=== PATIENT | male | born 1950 | race Caucasian/White ===

== ENCOUNTER 2021-01-15 08:20 | Day surgery (SDC) | payer OTHER ==
[~2021-01-15] VITALS: Ht 182.9 cm; Wt 64.0 kg
[~2021-01-15 08:20] MED LIST: ATOR20 PO; CARV6.25 PO; EUTHYROX50 MCG PO; FURO40 PO; GABA300 PO; Prinivil10 MG PO; SPIR25 PO; XARELTO2.5 M1 PO
[2021-01-15] MEDS ORDERED: ENTRESTO 24 MG1 EACH (08:42)
--- NOTE | 2021-01-15 13:23 | NUR ---
PT DRESSED, IV DC'D INTACT, TR BAND REMOVED, DRESSING AND SPLINT PLACED TO R WRIST, PT AMBULATES WELL, ALERT & ORIENTED, ANXIOUS TO GET HOME TO [facility] BEFORE STORM COMES IN.
--- NOTE | 2021-01-15 14:06 | NUR ---
PT DC'D TO FRONT DOOR BY , STATES HE IS MEETING LOCAL FRIEND, R WRIST SITE STABLE, PT AMBULATES WELL.
== END 2021-01-15 13:30 | disposition home or self-care (01) ==
LOC: MHTC 08:20
DX: I11.0 Hypertensive heart disease with heart failure (principal); I50.22 Chronic systolic (congestive) heart failure; I42.0 Dilated cardiomyopathy; I25.10 Atherosclerotic heart disease of native coronary artery without angina pectoris; I73.9 Peripheral vascular disease, unspecified; G47.33 Obstructive sleep apnea (adult) (pediatric); J44.9 Chronic obstructive pulmonary disease, unspecified; F17.210 Nicotine dependence, cigarettes, uncomplicated; E78.5 Hyperlipidemia, unspecified; E03.9 Hypothyroidism, unspecified; Z86.73 Personal history of transient ischemic attack (TIA), and cerebral infarction without residual deficits; Z95.820 Peripheral vascular angioplasty status with implants and grafts
CPT/HCPCS: 93005; 93010; 93458; 99152; 99153; C1769; C1894; J1644; J2250; J3010; J7030; J7050; Q9967

== ENCOUNTER 2021-06-10 10:41 | Inpatient (IN) | payer OTHER ==
[~2021-06-10] VITALS: Ht 182.9 cm; Wt 63.4 kg
[~2021-06-10 10:41] MED LIST changes: +ENTRESTO 24 MG1 EACH
[2021-06-10 11:19] LABS: BASOPHILS ABSOLUTE AUTO 0.07 K/mm3 (0.00-0.23); BASOPHILS PERCENT AUTO 1 % (0-2); EOSINOPHILS ABSOLUTE AUTO 0.73 K/mm3 (0.00-0.68); EOSINOPHILS PERCENT AUTO 10 % (0-6); Hematocrit 47.5 % (37.0-53.0); Hemoglobin 15.9 g/dL (13.5-17.5); IMMATURE GRAN ABSOLUTE AUTO 0.02 K/mm3 (0.00-0.10); IMMATURE GRAN PERCENT AUTO 0 % (0-1); LYMPHOCYTES ABSOLUTE AUTO 1.73 K/mm3 (0.84-5.20); LYMPHOCYTES PERCENT AUTO 25 % (21-46); MONOCYTES ABSOLUTE AUTO 0.65 K/mm3 (0.16-1.47); MONOCYTES PERCENT AUTO 9 % (4-13); Mean Corpuscular HGB 32.2 pg (26.0-34.0); Mean Corpuscular HGB Conc 33.5 g/dL (31.5-36.5); Mean Corpuscular Volume 96 fL (80-100); Mean Platelet Volume 8.8 fL (9.1-12.4); NEUTROPHILS ABSOLUTE AUTO 3.85 K/mm3 (1.96-9.15); NEUTROPHILS PERCENT AUTO 55 % (41-73); Platelet Count 215 K/mm3 (150-400); RDW Coefficient Variation 11.9 % (11.7-14.2); RDW Standard Deviation 42.5 fL (35.1-46.3); Red Blood Cell Count 4.94 M/mm3 (4.30-5.90); White Blood Cell Count 7.05 K/mm3 (4.00-11.30)
[2021-06-10 11:36] LABS: Bun/Creatinine Ratio 11.4 (12.0-20.0); Calcium, Blood 8.8 mg/dL (8.5-10.1); Creatinine, Blood 1.4 mg/dL (0.60-1.20)
[2021-06-10 11:38] LABS: International Normalized Ratio 1.04; Prothrombin Time Results 10.9 Sec (9.7-11.5)
--- NOTE | 2021-06-10 17:15 | NUR ---
SHIFT NOTE PT [facility] POST DUAL CHAMBER PACEMAKER/DEFIBRILLATOR PLACEMENT TO LEFT CHEST WALL. DRESSING INTACT, CLEAN AND DRY. DR BREWER WAS CALLED TO REASSESS SITE, DR BREWER DID NOT NOTE ABRNORMALITY TO SITE. PT REPORTS MILD PAIN TO PALPATION, FREE OF SUBCUTANEOUS AIR, BRUISING OR SWELLING. PT DENIES CP OR SOB. PT HAS BEEN TO XRAY. PACEMAKER INTERROGATED BY [facility] STAFF. VSS. LT ARM IN SLING. A/O X4. GOOD APPETITE. WILL CONTINUE TO MONITOR FOR CHANGES
--- NOTE | 2021-06-11 05:33 | NUR ---
SHIFT SUMMARY PATIENT A&O X4. CALM AND COOPERATIVE WITH CARE. POST PACEMAKER/DEFIBRILLATOR PLACEMENT. DRESSING IS C/D/I. PATIENT HAD SCANT AMOUNT OF SUBCUTANEOUS EMPHYSEMA FELT DURING BEGINNING OF SHIFT. EMPHYSEMA SPREAD DURING SHIFT TO MID STERNUM AND INCREASED IN SEVERITY WITH PATIENT REPORTING TENDERNESS WITH PALPATION. DR BREWER CALLED ABOUT CHANGE; DANIELLA CAME TO SEE PATIENT AROUND 0540. CXR 1V ORDERED TO VERIFY LEADS OF PACEMAKER. NO COMPLAINTS OF SOB. PACED RHYTHM WITH HR 60-80S. VSS. MEDICATED PER EMAR FOR SHOULDER PAIN. LEFT ARM IS IN SLING WITH PATIENT VERBALIZING UNDERSTANDING TO NOT USE ARM TO REPOSITION. WILL CONTINUE TO MONITOR FOR FURTHER CHANGES TO PACER SITE. PATIENT DEVELOPED N/V AFTER LAST DOSE OF ANCEF. PRN ZOFRAN ORDERED. PATIENT REFUSED IV MEDICATION AND STATED THAT NAUSEA/VOMITING HAS SUBSIDED. PATIENT CALLS APPROPRIATELY AND IS SBA TO COMMODE. CONTINENT B/B. PT ABLE TO REPOSITION SELF IN BED. BED IN LOWEST POSITION AND CALL LIGHT IN REACH.
--- NOTE | 2021-06-11 06:54 | NUR ---
THIS RN HAS REVIEWED THE STUDENT RN'S CHARTING AND ASSESMENTS AND AGREE WITH ALL THAT IS CHARTED.
--- NOTE | 2021-06-11 11:30 | NUR ---
IV REMOVED INTACT, PRESUSRE DRESSED. PT EDUCATED THOROUGHLY ON DC INSUTRCTIONS WOUND CARE, FOLLOW UP, MEDICATION ADMIN, AND ARM MOBILITY. PT REPORTS UNDERSTANDING AND DENIES FURTHER NEEDS
== END 2021-06-11 11:20 | disposition home or self-care (01) | DRG 227 ==
LOC: MHTC 10:41 → PCU 15:15 → MHTC 16:41 → PCU 06-11 11:20
PROVIDERS: ADMIT Internal Medicine Cardiovascular Disease
PROC: 0JH609Z Insertion of Cardiac Resynchronization Defibrillator Pulse Generator into Chest Subcutaneous Tissue and Fascia, Open Approach (ICD-10-PCS; principal; 2021-06-10)
PROC: 02HL3KZ Insertion of Defibrillator Lead into Left Ventricle, Percutaneous Approach (ICD-10-PCS; 2021-06-10)
PROC: 02H63KZ Insertion of Defibrillator Lead into Right Atrium, Percutaneous Approach (ICD-10-PCS; 2021-06-10)
DX: I44.7 Left bundle-branch block, unspecified (principal); I42.0 Dilated cardiomyopathy; I50.42 Chronic combined systolic (congestive) and diastolic (congestive) heart failure; G47.33 Obstructive sleep apnea (adult) (pediatric); I11.0 Hypertensive heart disease with heart failure; J44.9 Chronic obstructive pulmonary disease, unspecified; E78.5 Hyperlipidemia, unspecified; E03.9 Hypothyroidism, unspecified; Z91.048 Other nonmedicinal substance allergy status; Z86.73 Personal history of transient ischemic attack (TIA), and cerebral infarction without residual deficits; Z79.899 Other long term (current) drug therapy; Z79.01 Long term (current) use of anticoagulants
CPT/HCPCS: 33225; 33249; 36415; 71045; 71046; 80048; 85025; 85610; 93005; 93010; 99152; 99153; A9270; C1769; C1882; C1887; C1895; C1898; C1900; J0690; J1580; J1644; J2250; J3010; J7030; J7040; Q9967

== ENCOUNTER 2021-09-14 09:40 | Observation (INO) | payer OTHER ==
[~2021-09-14] VITALS: Ht 182.9 cm; Wt 62.6 kg
[2021-09-14 10:53] LABS: Bun/Creatinine Ratio 12.5 (12.0-20.0); Calcium, Blood 8.9 mg/dL (8.5-10.1); Creatinine, Blood 1.44 mg/dL (0.60-1.20); Potassium, Blood 3.9 mmol/L (3.5-5.5)
--- NOTE | 2021-09-14 11:09 | NUR ---
IVF STARTED WHEN THE BMP RESULTED. CR. 1.44. 100 ML/HR
--- NOTE | 2021-09-14 17:00 | NUR ---
1630 PATIENT RETURN FROM THE [facility]. SBAR RECEIVED FROM LISSA MORA. PATIENT PLACED ON THE MONITOR AND CALL LIGHT IN REACH. BILATERAL SHEATHS IN GROINS WAITING FOR ACT TO DECREASE. LAST ACT WAS 213. PATIENT WAS AWAKE AND NO PAIN NOTED.
--- NOTE | 2021-09-14 17:31 | NUR ---
SHEATH PULLED LEFT GROIN, MANUAL PRESSURE HELD FOR 15 MINUTES. CHG DRESSING PLACED.
--- NOTE | 2021-09-14 17:31 | NUR ---
1656 ACT RECHECKED 190.
--- NOTE | 2021-09-14 17:33 | NUR ---
RIGHT GROIN SHEATH PULLED AND MANUAL PRESSURE HELD FOR 15 MINUTES. CHG DRESSING PLACED. NO HEMATOMA, NO BLEEDING NOTED.
--- NOTE | 2021-09-14 17:56 | NUR ---
PATIENT EATING LUNCH. FINGER FOOD. CALL LIGHT IN REACH. NO PAIN NOTED.
--- NOTE | 2021-09-14 21:30 | NUR ---
XARELTO: CLARIFIED XARELTO ORDER W/DR SIDDIQI. ORDER TO HOLD TONIGHTS DOSE ADN START IN AM. PRIMARY RN NOTIFIED.
--- NOTE | 2021-09-15 00:32 | NUR ---
PT CHECK: PT APPEARS TO BE SLEEPING COMFORTABLY AT THIS TIME. NO VISUAL SIGNS OF PAIN OR DISCOMFORT NOTED. CALL LIGHT WITHIN REACH. PT DOOR IS OPEN.
--- NOTE | 2021-09-15 05:07 | NUR ---
SHIFT SUMMARY: NO CHANGES. PT SLEPT UNITERUPPTED T/O THE NIGHT. NO BLEEDING NOTED AT THE GROIN SITES. CALL LIGHT IS WITHIN REACH. PT WILL CALL ACCORDINLY AND USES URINAL AT BEDSIDE.
--- NOTE | 2021-09-15 10:00 | NUR ---
DISCHARGE PT AMBULATES TO DESK & ASKS TO SIGN DC PAPERWORK AT 0955. AFTER RECEIVING DC ORDERS AT 0952. WHEN TOLD THEY WERE NOT READY, SAYS HE WILL SIGN AMA PAPERS INSTEAD. WHEN ASKED TO WAIT 5 MINS BECAME UPSET, BUT KINDLY A SLURRY CONTROL OPERATOR HELPER TALKED TO HIM WHILE THIS RN FINISHED PAPERWORK. PRINTED & ATTEMPTED TO DISCUSS IT w/ PT. PT DECLINED, SIGNED PAPERS, & REFUSED TO TAKE PAMPHLET. THIS RN AMBULATED [facility]DC OUT TO EXIT & PT SAID HE DIDN'T NEED AN ESCORT ANYMORE & WAVED THIS RN OFF.
== END 2021-09-15 10:00 | disposition home or self-care (01) ==
LOC: MHTC 09:40 → SURS 18:15
PROVIDERS: Radiology Diagnostic Radiology; ADMIT Physician Assistant
DX: I73.9 Peripheral vascular disease, unspecified (principal); I72.3 Aneurysm of iliac artery; I71.4 Abdominal aortic aneurysm, without rupture; I11.0 Hypertensive heart disease with heart failure; I50.22 Chronic systolic (congestive) heart failure; E78.5 Hyperlipidemia, unspecified; J44.9 Chronic obstructive pulmonary disease, unspecified; E03.9 Hypothyroidism, unspecified; Z79.01 Long term (current) use of anticoagulants; Z87.891 Personal history of nicotine dependence; Z79.899 Other long term (current) drug therapy
CPT/HCPCS: 36200; 36245; 75625; 75716; 76937; 80048; 85347; 99152; 99153; A9270; C1769; C1887; C1894; J1644; J2250; J3010; J7030; J7040; Q9967